=== PATIENT | female | born 1965 | race Caucasian/White ===

== ENCOUNTER 2020-03-22 09:21 | Observation (INO) | payer OTHER ==
[~2020-03-22] VITALS: Ht 167.6 cm; Wt 124.7 kg
[2020-03-22] MEDS ORDERED: FAMOTIDINE 20 MG/2 ML VIAL IV STA (09:28)
[2020-03-22] MEDS ORDERED: ONDANSETRON HCL INJ 2MG/ML 2ML 2 MG/ML VIAL IV STA (09:28)
--- NOTE | 2020-03-22 09:34 | Emergency Department Note ---
History of Present Illnes History of Present Illness Chief Complaint: Abdominal Complaints History of Present Illness This is a 55 year old female that has had abdominal pain for the last 6 days. Patient did go to an urgent care, she had a cold with strep and flu that while negative. Patient states that she's had right upper quadrant right-sided pain for the 60s constantly worsening, 10 out of 10 right now. Patient also with nausea vomiting last episode of emesis was this morning, no blood no bile. Nl BMs, no urinary complaints. Arrival Mode: Car Onset (how long ago): day(s) (6) Location: RUQ, MATY Quality: ACHE Radiation: Reports non-radiation Severity: severe Onset quality: gradual Duration (how long): day(s) (6) Timing of current episode: constant Progression: worsening Chronicity: new Context: Reports recent illness; Denies recent surgery, Denies recent immobilization, Denies recent travel Relieving factors: none Exacerbating factors: none Associated symptoms: Reports loss of appetite, Reports nausea/vomiting Past Medical/Family History Physician Review I have reviewed the patient's past medical and family history. Any updates have been documented here. Review of Systems Review of Systems Constitutional: Reports no symptoms EENTM: Reports no symptoms Cardiovascular: Reports no symptoms Respiratory: Reports no symptoms Gastrointestinal: Reports as per HPI Genitourinary: Reports no symptoms Musculoskeletal: Reports no symptoms Integumentary: Reports no symptoms Neurological: Reports no symptoms Psychological: Reports no symptoms Endocrine: Reports no symptoms Hematological/Lymphatic: Reports no symptoms Physical Exam Related Data Allergies: Coded Allergies: No Known Allergies (Unverified , 03/22/20) Vital signs reviewed: Yes Physical Exam CONSTITUTIONAL Constitutional: Present well-developed, Present well-nourished HENT HENT: Present normocephalic, Present atraumatic, Present oropharynx clear/moist, Present nose normal HENT L/R: Present left ext ear normal, Present right ext ear normal EYES Eyes: Reports PERRL, Reports conjunctivae normal NECK Neck: Present ROM normal PULMONARY Pulmonary: Present effort normal, Present breath sounds normal CARDIOVASCULAR Cardiovascular: Present regular rhythm, Present heart sounds normal, Present capillary refill normal, Present normal rate GASTROINTESTINAL Abdominal: Present soft, Present bowel sounds normal, Present tender (TTP RUQ, no peritoneal sings ) GENITOURINARY Genitourinary: Present exam deferred SKIN Skin: Present warm, Present dry MUSCULOSKELETAL Musculoskeletal: Present ROM normal NEUROLOGICAL Neurological: Present alert, Present oriented x 3, Present no gross motor or sensory deficits PSYCHOLOGICAL Psychological: Present mood/affect normal, Present judgement normal Assessment & Plan Medical Decision Making MDM Patient is a 55-year-old female with right upper quadrant to mid epigastric pain, known history of gallstones. Patient uncomfortable on exam, we will do lab work and imaging again. Patient does not have any right lower quadrant pain to my exam, no peritonitis. Patient does not have any urinary complaints, no concern for urinary source, no concern for kidney stones either. Patient likely with symptomatic cholelithiasis versus cholecystitis. Given his her age and body habitus, we'll do an EKG and cardiac to rule out ACS. Pain has been constant greater than 8 hours so one set will rule out ACS. Reassessment Reassessment KG interpreted by me shows normal sinus rhythm, normal axis, normal intervals, no acute ST changes. EKG shows sinus tachycardia. Assessment & Plan Final Impression: (1) Abdominal pain (2) Cholecystitis Depart Disposition: ADMITTED OSCAR SUNG MD Mar 22, 2020 09:34
[2020-03-22 09:45] LABS: BASOPHILS # (AUTO) 0.1 (0.0-0.1); BASOPHILS % 0.2 % (0.0-1.0); EOSINOPHILS # (AUTO) 0.1 (0.0-0.4); EOSINOPHILS % 0.4 % (0.0-6.0); HEMATOCRIT 45.7 % (34.2-44.1); HEMOGLOBIN 15.4 g/dL (12.0-16.0); LYMPHOCYTES % 9.6 % (18.0-39.1); MEAN CORPUSCULAR HGB CONC 33.7 g/dL (31-35); MEAN CORPUSCULAR VOLUME 89.1 fL (81-99); MONOCYTES # (AUTO) 1.2 (0.2-0.8); MONOCYTES % 5.7 % (4.4-11.3); NEUTROPHILS # (AUTO) 17.5 (2.1-6.9); NEUTROPHILS % 83.3 % (38.7-80.0); PLATELET COUNT 391 x10e3/uL (140-360); RED BLOOD COUNT 5.13 x10e6/uL (3.6-5.1)
[2020-03-22 10:05] LABS: ALANINE AMINOTRANSFERASE 12 IU/L (0-55); ALBUMIN 3.7 g/dL (3.5-5.0); ALBUMIN/GLOBULIN RATIO 0.7 (0.8-2.0); ALKALINE PHOSPHATASE 108 IU/L (40-150); ANION GAP 15.6 mmol/L (8-16); BLOOD UREA NITROGEN 16 mg/dL (7-26); BUN/CREATININE RATIO 21 (6-25); CALCIUM 9.2 mg/dL (8.4-10.2); CARBON DIOXIDE 25 mmol/L (22-29); CHLORIDE 101 mmol/L (98-107); CREATINE KINASE 132 IU/L (29-168); CREATININE, SERUM 0.76 mg/dL (0.57-1.11); EST GLOMERULAR FILTRATION RATE > 60 ML/MIN (60-); GLUCOSE 152 mg/dL (74-118); LIPASE 6 U/L (8-78); POTASSIUM 3.6 mmol/L (3.5-5.1); SODIUM 138 mmol/L (136-145)
[2020-03-22] MEDS ORDERED: DONNATAL/LIDOCAINE/MAALOX 30 ML SUSP PO ONE (10:30)
--- NOTE | 2020-03-22 10:37 | Diagnostic Imaging Report ---
Abdominal Ultrasound Limited Clinical Diagnosis: Possible gallstones. Right upper quadrant pain. Comparison: None Technique: Multiple transaxial and longitudinal images were obtained through the abdomen with real time ultrasonography. A low frequency curvilinear transducer was utilized. Multiple images were submitted for interpretation. Report: The patient has limited mental capacity and was unable to cooperate for the exam. There was intestinal gas that interfered with the exam. Liver: The liver measures 15.2 cm in the right midaxillary line. There are no focal masses or abnormal cysts. The echogenicity is slightly increased. Gallbladder: The transverse diameter is normal cm. The wall measures 6 mm. There is a 2 mm stone at the gallbladder neck. The gallbladder fluid is replaced with echogenic material which could be solid tissue or packed debris debris. There is a small amount of pericholecystic fluid. Sonographic Acevedo's sign is negative. Biliary tree: There is no evidence of intra or extra hepatic biliary ductal dilatation. The common bile duct measures 3 mm. Portal vein: The portal vein measures 12 mm. There is hepatopedal flow. Hepatic veins: Unremarkable. Pancreas: The pancreas shows normal echotexture and no focal masses or cysts. There is no pancreatic duct dilatation. Ascites: Absent Pleural Effusion: Absent Right kidney: The right kidney measures 11.2 x 5.4 x 4.6 cm there is a cyst inferiorly and laterally measuring 2.9 x 2.2 x 3.1 cm and is a simple cortical cyst.. There is no evidence of hydronephrosis, mass. IVC/Aorta: Partially seen segments demonstrate no abnormality. Impression: Limited abdominal ultrasound showing a thick walled gallbladder with a stone in the neck, echogenic material replacing the usually fluid contents representing tissue or debris and with pericholecystic fluid. Sonographic Acevedo's sign is negative. Clinical correlation should be carried out. A gall bladder mass is not ruled out. The liver shows mildly increased echogenicity of the liver that could represent fatty infiltration. Simple cortical cyst in the right kidney. The telephone number provided [phone] does not answer. Signed by: Rony Arnold MD on 03/22/2020 10:33 AM
[2020-03-22] MEDS ORDERED: PIPER-TAZ 3.375 GM 50 ML IV ONE (11:15)
[2020-03-22] MEDS ORDERED: HYDROMORPHONE 1MG/1ML INJ IV ONE (12:00)
--- OUTSIDE RECORDS SUMMARY | 2020-03-22 12:01 | XMS REPORT | Continuity of Care Document ---
Author Author [facility] t Organization [facility] Address [address] [place] [id number] Phone Unavailable Care Team Providers Care Field Service Rep Name Role Phone Tiffanie SUNG Unavailable Problems This patient has no known problems. Allergies, Adverse Reactions, Alerts This patient has no known allergies or adverse reactions. Medications This patient has no known medications. Procedures This patient has no known procedures. Results Test Description Test Time Test Comments Results Result Comments Source [facility] 2020-03-22 10:14:00 [facility] 1965 Sex: F [facility] [address] [place] [address] Patient Name: SARA ARREDONDO MR #: [id number] : 1965 Age/Sex: 55/F Req #: [id number] [facility] Physician: Ordered by: OSCAR SUNG MD Report #: [id number] Location: ER Room/Bed: Procedure: [id number] US/US ABDOMEN LIMITED Exam Date: 03/22/20 Exam Time: 940 REPORT STATUS: Signed Abdominal Ultrasound Limited [facility] Diagnosis: Possible gallstones. Right upper quadrant pain. Comparison: None Technique: Multiple transaxial and longitudinal images were obtained through the abdomen with real time ultrasonography. A low frequency curvilinear transducer was utilized. Multiple images were submitted for interpretation. Report: The patient has limited mental capacity and was unable to cooperate for the exam. There was intestinal gas that interfered with the exam. Liver: The liver measures 15.2 cm in the right midaxillary line. There are no focal masses or abnormal cysts. The echogenicity is slightly increased. Gallbladder: The transverse diameter is normal cm. The wall measures 6 mm. There is a 2 mm stone at the gallbladder neck. The gallbladder fluid is replaced with echogenic material which could be solid tissue or packed debris debris. There is a small amount of pericholecystic fluid. Sonographic Acevedo's sign is negative. Biliary tree: There is no evidence of intra or extra hepatic biliary ductal dilatation. The common bile duct measures 3 mm. Portal vein: The portal vein measures 12 mm. There is hepatopedal flow. Hepatic veins: Unremarkable. Pancreas: The pancreas shows normal echotexture and no focal masses or cysts. There is no pancreatic duct dilatation. Ascites: Absent Pleural Effusion: Absent Right kidney: The right kidney measures 11.2 x 5.4 x 4.6 cm there is a cyst inferiorly and laterally measuring 2.9 x 2.2 x 3.1 cm and is a simple cortical cyst.. There is no evidence of hydronephrosis, mass. IVC/Aorta: Partially seen segments demonstrate no abnormality. Impression: Limited abdominal ultrasound showing a thick walled gallbladder with a stone in the neck, echogenic material replacing the usually fluid contents representing tissue or debris and with pericholecystic fluid. Sonographic Acevedo's sign is negative. Clinical correlation should be carried out. A gall bladder mass is not ruled out. The liver shows mildly increased echogenicity of the liver that could represent fatty infiltration. Simple cortical cyst in the right kidney. The telephone number provided [phone] does not answer. Signed by: Stephanie Lazcano MD on 03/22/2020 10:33 AM Dictated By: STEPHANIE LAZCANO MD [id number] Transcribed By: NIKOLAI on 03/22/201032 COPY TO: OSCAR SUNG MD
[2020-03-22] MEDS: SODIUM CHLORIDE 0.9% 1000ML 1,000 ML IV SCH ×2 (13:00→20:43)
--- NOTE | 2020-03-22 13:00 | NUR ---
RCD PATIENT FROM ER BY BED PT IS ALERT AND ORIENTED PT RESTING ON BED VITALS CHECKED ,ADMISSION ASSESSMENT DONE PT SAID ABDOMINAL PAIN ON THE RIGHT SIDE STARTED ON LAST SUNDAY ,NOW SHE DENIED ANY PAIN SHE HAD BOWEL MOVEMENT ON YESTURDAY SHE VOIDED ,IV PATENT BY SALINE FLUSH ANS CONNECTED NS 125 ML/HR ,INSTRUCTED THE PT AND FAMILY REGARDING HOSPITAL POLICY AND ROUTINE AND VISITING POLICY BED LOW AND LOCKED CALL LIGHT IN REACH
[2020-03-22 13:12] VITALS: BP 159/95
[2020-03-22 13:27] VITALS: BP 159/95
[2020-03-22 13:30] VITALS: BP 159/95
--- NOTE | 2020-03-22 13:41 | NUR ---
AC TO [facility] ,DR AVELAR IS THE [employer] HE IS AWARE ABOUT THE CONSULTATION
[2020-03-22 15:34] VITALS: BP 164/79
[2020-03-22] MEDS ORDERED: DEXAMETHASONE SOD PHOS INJ 4 MG/ML VIAL ONE (16:05)
[2020-03-22] MEDS ORDERED: NEOSTIGMINE 1 MG/ML 10ML VIAL ONE (16:05)
[2020-03-22] MEDS ORDERED: LIDOCAINE HCL 2% LOCAL INJ 5 ML SDV VIAL INJ ONE (16:05)
[2020-03-22] MEDS ORDERED: GLYCOPYRROLATE INJ 0.2 MG/ML VIAL ONE (16:05)
[2020-03-22] MEDS ORDERED: SEVOFLURANE INHAL SOLN 250 ML PEN BTL ONE (16:05)
[2020-03-22] MEDS ORDERED: ROCURONIUM BROMIDE 10 MG/ML 5ML VIAL IV ONE (16:05)
[2020-03-22] MEDS ORDERED: ONDANSETRON HCL INJ 2MG/ML 2ML 2 MG/ML VIAL ONE (16:05)
[2020-03-22] MEDS ORDERED: ALBUTEROL SULFATE HFA 8GM INHALATION AEROSOL INH ONE (16:05)
[2020-03-22] MEDS ORDERED: PROPOFOL IV EMULSION 10 MG/ML 20 ML VIAL ONE (16:05)
--- NOTE | 2020-03-22 16:10 | NUR ---
PT C/O PAIN ON ABDOMEN PAGED AND NOTIFIED DR Goldy TELLO GOT NEW ORDERS
[2020-03-22] MEDS: ONDANSETRON HCL INJ 2MG/ML 2ML 2 MG/ML VIAL IV PRN ×2 (16:38→20:40)
[2020-03-22] MEDS: HYDROMORPHONE 1MG/1ML INJ IV PRN ×2 (16:38→20:40)
--- NOTE | 2020-03-22 17:30 | NUR ---
PT GOING FOR SURGERY ON TOMORROW ,NPO AFTER MIDNIGHT SIGNED CONSENT
[2020-03-22] MEDS: PIPER-TAZ 3.375 GM 50 ML IV SCH (18:00)
--- NOTE | 2020-03-22 18:41 | Consultation ---
DATE OF CONSULTATION: 03/22/2020 HISTORY OF PRESENT ILLNESS: The patient is a 55-year-old female, presents to the emergency room with complaints of abdominal pain, which she has had now for about 5 days. She has had known gallstones for years. She says the pain is epigastric and right upper quadrant. She has had a low-grade fever. She denies nausea or vomiting. There are no symptoms of jaundice. Evaluation in the emergency room revealed gallstones with stone in the gallbladder neck with thickened gallbladder wall. PAST MEDICAL HISTORY: Otherwise unremarkable. She denies chronic medical problems. PAST SURGICAL HISTORY: Only previous surgery is ankle surgery. MEDICATIONS: There were no current medications. ALLERGIES: NO KNOWN ALLERGIES. FAMILY HISTORY: Noncontributory. SOCIAL HISTORY: The patient does not smoke cigarettes or drink alcohol. REVIEW OF SYSTEMS: As stated above, otherwise was negative. PHYSICAL EXAMINATION: GENERAL: The patient is awake and alert, in no distress. VITAL SIGNS: Normal. HEENT: Sclerae are not icteric. NECK: Has no masses. LUNGS: Equal breath sounds are clear bilaterally. CARDIAC: Regular rate and rhythm. Normal S1 and S2 without murmur, S3, or S4. There is no jugular venous distention. ABDOMEN: Tender in the right upper quadrant. There is no mass. There was no organomegaly. EXTREMITIES: Have no edema. NEUROLOGIC: Intact. ASSESSMENT: A 55-year-old female with acute cholecystitis and cholelithiasis. She will benefit from cholecystectomy, which I planned to schedule for tomorrow. Procedure was explained to the patient including risks, benefits, and alternatives. She understands. She has had the opportunity to ask questions. She is aware of the possible need for open surgery. Thank you for asking me to see Ms. Cortes. MD LATSAHA Garnica/FREDERICK /[id number]
--- NOTE | 2020-03-22 18:47 | NUR ---
PT RESTING ON BED BED SIDE REPORT GIVEN TO ONCOMING NURSE
[2020-03-22 20:00] VITALS: BP 158/85
--- NOTE | 2020-03-22 20:08 | NUR ---
History&Physical Chief Complaint - RUQ abdominal pain History of Present Illness Ms Cortes is a 55 yo F with PMH significant for tobacco use and cholelithiasis who presents with RUQ abdominal pain admitted for acute cholecystitis. Patient states she has been having epigastric and RUQ abdominal pain for 5 days after eating tacos at [employer]. The pain was persistent and caused nausea and occasional vomiting. She has been unable to eat for the last few days due to the pain, and she recognized that it is likely her gallbladder as she had this happen 5 years ago and was told it was a gallstone (likely mild cholecystitis). Did not have an EGD or any procedure done that time. She was discharged and told to followup outpatient for cholecystectomy but never followed up. In ED her vitals were stable, WBC 21k however. Positive villeda's sign on physical exam by ER physician prompted abdominal US which showed thickened gallb ladder wall with a stone in the neck and pericholecystic fluid. Admitted for further management. Home Medications - no home medications Review of Systems General: No fever, chills, or fatigue HEENT: Denies visual changes, hearing loss, congestion, rhinorrhea, or bleeding Respiratory: No SOB, cough, or hemoptysis Cardiovascular: No chest pain, palpitations, WEI, orthopnea, PND, leg edema, or claudication Gastrointestinal: + nausea,+ vomiting, +abdominal pain; No diarrhea, constipation G/U: Denies dysuria, hematuria, incontinence, or discharge Musculoskeletal: No myalgias or arthralgias Neurological: No syncope, seizures, headaches, changes in sensation, or weakness Hematology: No bruising, bleeding, or lymphadenopathy Endocrine: No heat or cold intolerance, hair loss, or weight changes Skin: No rashes, sores, itching, bruising Psychiatric: Denies depression or elevated mood, or anxiety Past Medical History Tobacco abuse Past Surgical History Prior ankle surgery Family History Non-contributory Social History Smokes 0.5PPD x 30 years; does not drink, does not use drugs Allergies NKDA Physical Exam Vitals: Temp: 98.2P: 97BP: 164/79RR: 18SpO2: 96 General Appearance: The patient is alert, oriented and in no acute distress. Appears euvolemic. Skin: Warm and hydrated without any rash. HEENT: Head is normocephalic, atraumatic. Nontender sinuses. Pupils are equal and reactive. The nares are patent. Oropharynx is moist and clear without lesions. Neck: Supple without lymphadenopathy. No JVD. 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 Normal S1 and S2 without S3/S4. No murmurs, rubs or gallops. Peripheral pulses symmetric +2. Respiratory / Chest: No crackles or wheezes are heard. Symmetric breath sounds. Preserved chest expansion. Abdomen: Soft, +tenderness to RUQ on light palpation; nondistended with good bowel sounds heard. No clinical organomegaly. Renal: There is no costovertebral angle tenderness. Extremities: Without cyanosis, clubbing or edema. Preserved ROM. Neurological: Gross nonfocal. Patient oriented x 3. Cranial nerves II - XII Grossly intact. DTRs +2. MS: 5/5 globally. Labs/Imaging: all pertinent labs and diagnostic imaging were reviewed Assessment/Plan #acute cholecystitis - keep NPO - Zosyn started - Consulted Dr Yao, appreciate assistance - planning for cholecystectomy tomorrow AM #Hypertension? - no prior diagnosis; SBP 150-160s - could be related to pain however, will monitor and start medications as necessary I have spent 70 minutes [id number] time with patient, reviewing clinical data, and formulating plan of treatment. Amado Coreas MD Internal Medicine
[2020-03-22 21:00] VITALS: BP 158/85
[2020-03-23] VITALS (8 sets, daily range): BP systolic 131–162; BP diastolic 63–90
[2020-03-23] MEDS: PIPER-TAZ 3.375 GM 50 ML IV SCH ×5 (00:25→23:53)
--- NOTE | 2020-03-23 00:35 | NUR ---
Patient educated about NPO status ( nothing by mouth) patient verbalized understanding. All drinks removed from bedside.
[2020-03-23] MEDS: SODIUM CHLORIDE 0.9% 1000ML 1,000 ML IV SCH ×3 (04:14→15:56)
--- NOTE | 2020-03-23 05:45 | NUR ---
Patient up to shower for CHG shower, linens changed. Tolerating well
[2020-03-23 05:46] LABS: ALANINE AMINOTRANSFERASE 10 IU/L (0-55); ALBUMIN/GLOBULIN RATIO 0.7 (0.8-2.0); ALKALINE PHOSPHATASE 86 IU/L (40-150); ANION GAP 11.5 mmol/L (8-16); BLOOD UREA NITROGEN 17 mg/dL (7-26); BUN/CREATININE RATIO 22 (6-25); CALCIUM 8.3 mg/dL (8.4-10.2); CARBON DIOXIDE 27 mmol/L (22-29); CHLORIDE 104 mmol/L (98-107); CREATININE, SERUM 0.76 mg/dL (0.57-1.11); EST GLOMERULAR FILTRATION RATE > 60 ML/MIN (60-); GLUCOSE 142 mg/dL (74-118); POTASSIUM 3.5 mmol/L (3.5-5.1); SODIUM 139 mmol/L (136-145)
[2020-03-23 05:49] LABS: BASOPHILS # (AUTO) 0.1 (0.0-0.1); BASOPHILS % 0.4 % (0.0-1.0); EOSINOPHILS # (AUTO) 0.2 (0.0-0.4); EOSINOPHILS % 0.8 % (0.0-6.0); HEMATOCRIT 41.6 % (34.2-44.1); HEMOGLOBIN 13.6 g/dL (12.0-16.0); LYMPHOCYTES # (AUTO) 1.7 (1.0-3.2); LYMPHOCYTES % 8.5 % (18.0-39.1); MEAN CORPUSCULAR HGB CONC 32.7 g/dL (31-35); MEAN CORPUSCULAR VOLUME 91.6 fL (81-99); MONOCYTES # (AUTO) 1.7 (0.2-0.8); MONOCYTES % 8.6 % (4.4-11.3); NEUTROPHILS % 81.2 % (38.7-80.0); PLATELET COUNT 322 x10e3/uL (140-360); RED BLOOD COUNT 4.54 x10e6/uL (3.6-5.1); RED CELL DISTRIBUTION WIDTH 13.1 % (11.7-14.4)
[2020-03-23] MEDS: HYDROMORPHONE 1MG/1ML INJ IV PRN ×2 (06:30→15:57)
[2020-03-23] MEDS: ONDANSETRON HCL INJ 2MG/ML 2ML 2 MG/ML VIAL IV PRN (06:30)
--- NOTE | 2020-03-23 07:08 | NUR ---
Bedside report and walking rounds completed with oncoming nurse. Patient in bed with call light within reach. No issues or concerns noted. Bed locked and in lowest position. Patient updated on POC.
[2020-03-23] MEDS ORDERED: BUPIVACAINE HCL 0.5% INJ 30 ML VIAL INJ ONE (11:57)
[2020-03-23] MEDS ORDERED: FENTANYL CITRATE/PF 100MCG/2 ML INJ ONE ×2 (12:03→14:47)
[2020-03-23] MEDS ORDERED: MIDAZOLAM HCL 2 MG/2 ML VIAL ONE (12:03)
[2020-03-23] MEDS ORDERED: ONDANSETRON HCL INJ 2MG/ML 2ML 2 MG/ML VIAL IV PRN (14:30)
--- NOTE | 2020-03-23 15:00 | NUR ---
Pt received from PACU at this time. Pt is aox3 and able to verbalize needs. Complain of soreness to abdomen after josue/daniella. Breaths are even and unlabored on room air.
--- NOTE | 2020-03-23 15:31 | Operative Report ---
DATE OF PROCEDURE: 03/23/2020 SURGEON: Jas Yao MD PREOPERATIVE DIAGNOSES: Acute cholecystitis and cholelithiasis. POSTOPERATIVE DIAGNOSES: Acute cholecystitis and cholelithiasis. PROCEDURES: Diagnostic laparoscopy, laparoscopic cholecystectomy. COLLAR STITCHER: None. ANESTHESIA: General endotracheal. INDICATIONS AND FINDINGS: The patient is a 55-year-old female admitted to the hospital, complaints of severe epigastric right upper quadrant abdominal pain. Workup revealed a large stone impacting the gallbladder neck with findings suggestive of acute cholecystitis. At surgery, the patient was found that the gallbladder was distended and edematous with a large stone impacting the gallbladder neck. Cystic duct was about 3 mm in diameter. Common bile duct was about 6 mm in diameter. Liver, stomach, and lower abdomen all appeared normal. TECHNIQUE: After adequate general endotracheal anesthesia, the patient in supine position, the abdomen was prepped and draped in sterile fashion with ChloraPrep solution. Skin in the umbilicus was infiltrated with 0.5% Marcaine. Incision was made in the umbilicus. Abdominal wall was elevated and Veress needle was introduced. Pneumoperitoneum was then created. A 10 mm trocar and cannula were then passed through the umbilical wound. Laparoscopic camera was introduced. Initial laparoscopy revealed inflammatory process in right upper quadrant. A 10 mm trocar and cannula were placed in the epigastrium. Two 5 mm trocars and cannulas were placed in the right upper quadrant. These were placed under direct vision. There was omentum adherent over an acutely inflamed gallbladder. The omentum was dissected away from the gallbladder. The gallbladder was edematous and tense. It was decompressed with a needle, contained some thick bile sludge and some mucus. Fundus of the gallbladder was grasped and retracted superiorly. Neck of the gallbladder was grasped and retracted laterally. Peritoneum over the neck of the gallbladder was incised. The gallbladder and cystic duct junction were dissected free. Cystic artery was also dissected free. The neck of the gallbladder completely dissected free. Cystic artery was divided between hemoclips close to the gallbladder. Cystic duct was also divided between hemoclips with 3 clips being left on the common bile duct side. There was a posterior branch of cystic artery, which was also divided between hemoclips close to the gallbladder. The gallbladder was dissected free from the liver using scissors and electrocautery. Once it was entirely free, it was placed into an Endopouch and brought out through the epigastric cannula. There was one large stone. Gallbladder bed was inspected for hemostasis, which was seen to be adequate. It was irrigated with saline. All fluid aspirated and inspected for hemostasis, which was seen to be adequate. Instruments and cannulas were removed. Pneumoperitoneum was evacuated. Wounds were then closed. Fascia in the umbilical and epigastric wound closed with 0 Vicryl. Skin to all wounds closed with faustino. Sterile dressings applied to each wound. The patient tolerated the procedure well. Estimated blood loss was 40 mL. There were no complications. All counts were correct. The patient was taken to the recovery room in satisfactory condition. MD LATASHA Garnica/FREDERICK /[id number] cc: Chet Coreas MD
[2020-03-23 16:46] LABS: BASOPHILS # (AUTO) 0.1 (0.0-0.1); BASOPHILS % 0.3 % (0.0-1.0); EOSINOPHILS % 0.2 % (0.0-6.0); HEMATOCRIT 40.2 % (34.2-44.1); HEMOGLOBIN 12.9 g/dL (12.0-16.0); LYMPHOCYTES # (AUTO) 0.8 (1.0-3.2); LYMPHOCYTES % 4.1 % (18.0-39.1); MEAN CORPUSCULAR HEMOGLOBIN 29.9 pg (28-32); MEAN CORPUSCULAR HGB CONC 32.1 g/dL (31-35); MEAN CORPUSCULAR VOLUME 93.3 fL (81-99); MONOCYTES # (AUTO) 0.7 (0.2-0.8); MONOCYTES % 3.5 % (4.4-11.3); NEUTROPHILS % 91.3 % (38.7-80.0); PLATELET COUNT 307 x10e3/uL (140-360); RED BLOOD COUNT 4.31 x10e6/uL (3.6-5.1); RED CELL DISTRIBUTION WIDTH 13.2 % (11.7-14.4)
--- NOTE | 2020-03-23 19:00 | NUR ---
Bedside report and walking rounds completed with off going nurse. Patient walking in room with spouse at side. No issues or concerns noted. Bed locked and in lowest position. Patient updated on POC.
--- NOTE | 2020-03-23 19:41 | NUR ---
Patient up and ambulating in vela with spouse at side, tolerating well.
[2020-03-23] MEDS: HYDROCODONE/APAP 5MG-325MG TAB PO PRN ×2 (19:55→23:50)
--- NOTE | 2020-03-23 21:17 | NUR ---
Progress Note Subjective 03/23: S/p lap daniella today, will monitor overnight and manage pain, continue IV abx for 24 hrs after surgery and likely discharge home tomorrow. History of Present Illness Ms Cortes is a 55 yo F with PMH significant for tobacco use and cholelithiasis who presents with RUQ abdominal pain admitted for acute cholecystitis. Patient states she has been having epigastric and RUQ abdominal pain for 5 days after eating tacos at [employer]. The pain was persistent and caused nausea and occasional vomiting. She has been unable to eat for the last few days due to the pain, and she recognized that it is likely her gallbladder as she had this happen 5 years ago and was told it was a gallstone (likely mild cholecystitis). Did not have an EGD or any procedure done that time. She was discharged and told to followup outpatient for cholecystectomy but never followed up. In ED her vitals were stable, WBC 21k however. Positive villeda's sign on physical exam by ER physician prompted abdominal US which showed thickened gallb ladder wall with a stone in the neck and pericholecystic fluid. Admitted for further management. Physical Exam Vitals: Temp: 98.6P: 81BP: 131/90RR: 20SpO2: 92% General Appearance: The patient is alert, oriented and in no acute distress. Appears euvolemic. Skin: Warm and hydrated without any rash. HEENT: Head is normocephalic, atraumatic. Nontender sinuses. Pupils are equal and reactive. The nares are patent. Oropharynx is moist and clear without lesions. Neck: Supple without lymphadenopathy. No JVD. 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 Normal S1 and S2 without S3/S4. No murmurs, rubs or gallops. Peripheral pulses symmetric +2. Respiratory / Chest: No crackles or wheezes are heard. Symmetric breath sounds. Preserved chest expansion. Abdomen: Soft, +tenderness to RUQ on light palpation; nondistended with good bowel sounds heard. No clinical organomegaly. Renal: There is no costovertebral angle tenderness. Extremities: Without cyanosis, clubbing or edema. Preserved ROM. Neurological: Gross nonfocal. Patient oriented x 3. Cranial nerves II - XII Grossly intact. DTRs +2. MS: 5/5 globally. Labs/Imaging: all pertinent labs and diagnostic imaging were reviewed Assessment/Plan #acute cholecystitis s/p lap daniella - Zosyn, will continue for 1 day post op then d/c - Consulted Dr Yao, now s/p lap daniella - Dilaudid and norco for pain #Hypertension? - no prior diagnosis; SBP 150-160s - could be related to pain however, will monitor and start medications as necessary Amado Coreas MD Internal Medicine
[2020-03-24] VITALS: BP 137/72
[2020-03-24 04:00] VITALS: BP 143/70
[2020-03-24] MEDS: SODIUM CHLORIDE 0.9% 1000ML 1,000 ML IV SCH (04:01)
--- NOTE | 2020-03-24 04:06 | NUR ---
Patient up and ambulating in vela with spouse, tolerating well.
[2020-03-24] MEDS: PIPER-TAZ 3.375 GM 50 ML IV SCH (05:35)
[2020-03-24 06:44] LABS: BASOPHILS % 0.2 % (0.0-1.0); HEMATOCRIT 37.6 % (34.2-44.1); HEMOGLOBIN 11.9 g/dL (12.0-16.0); LYMPHOCYTES # (AUTO) 1.2 (1.0-3.2); LYMPHOCYTES % 7.1 % (18.0-39.1); MEAN CORPUSCULAR HEMOGLOBIN 29.8 pg (28-32); MEAN CORPUSCULAR HGB CONC 31.6 g/dL (31-35); MEAN CORPUSCULAR VOLUME 94.2 fL (81-99); NEUTROPHILS # (AUTO) 14.7 (2.1-6.9); NEUTROPHILS % 86.1 % (38.7-80.0); PLATELET COUNT 303 x10e3/uL (140-360); RED BLOOD COUNT 3.99 x10e6/uL (3.6-5.1); RED CELL DISTRIBUTION WIDTH 13.4 % (11.7-14.4)
[2020-03-24 07:10] LABS: ALANINE AMINOTRANSFERASE 25 IU/L (0-55); ALBUMIN 2.6 g/dL (3.5-5.0); ALBUMIN/GLOBULIN RATIO 0.6 (0.8-2.0); ALKALINE PHOSPHATASE 84 IU/L (40-150); ANION GAP 13.2 mmol/L (8-16); BLOOD UREA NITROGEN 20 mg/dL (7-26); BUN/CREATININE RATIO 26 (6-25); CALCIUM 8.6 mg/dL (8.4-10.2); CARBON DIOXIDE 27 mmol/L (22-29); CHLORIDE 105 mmol/L (98-107); CREATININE, SERUM 0.78 mg/dL (0.57-1.11); EST GLOMERULAR FILTRATION RATE > 60 ML/MIN (60-); GLUCOSE 126 mg/dL (74-118); POTASSIUM 4.2 mmol/L (3.5-5.1); SODIUM 141 mmol/L (136-145)
[2020-03-24 08:00] VITALS: BP 127/67
[2020-03-24 08:08] VITALS: BP 143/70
[2020-03-24] MEDS ORDERED: NORCO 5-325 TA1 EACH PO (10:00)
--- NOTE | 2020-03-24 10:24 | NUR ---
Discharge instructions and prescription for [place] given to the patient. She verbalized understanding. There was duplicate prescription for pain medication. The rx for Ultracet was placed in shredder and witnessed by second RN, Luana.
== END 2020-03-24 10:45 | disposition home or self-care (01) ==
LOC: ER 09:30 → ERHOLD 11:30 → MED/SURG2 12:46
PROVIDERS: ADMIT Internal Medicine; ATTEND Internal Medicine
DX: K80.00 Calculus of gallbladder with acute cholecystitis without obstruction (principal); R03.0 Elevated blood-pressure reading, without diagnosis of hypertension; Z72.0 Tobacco use; Z20.828 Contact with and (suspected) exposure to other viral communicable diseases
CPT/HCPCS: 36415 ×3; 47562; 76705; 80053 ×3; 82550; 82553; 83036; 83605; 83690; 84484; 85025 ×3; 87040; 88304; 93005; 99284; G0378 ×3; J1100; J1170 ×2; J2001; J2250; J2405 ×2; J2543 ×3; J2704; J2710; J3010; J7030 ×3; U0002

== ENCOUNTER 2024-11-23 17:53 | Emergency (ER) | payer OTHER ==
[~2024-11-23] VITALS: Ht 172.7 cm; Wt 111.1 kg
[~2024-11-23 17:53] MED LIST: NORCO 5-325 TA1 EACH PO
[2024-11-23 19:32] LABS: BASOPHILS % 0.3 % (0.0-1.0); EOSINOPHILS % 0.7 % (0.0-6.0); LYMPHOCYTES % 20.2 % (18.0-39.1); MONOCYTES % 3.9 % (4.4-11.3); NEUTROPHILS % 74.6 % (38.7-80.0); RED CELL DISTRIBUTION WIDTH 13.5 % (11.7-14.4)
[2024-11-23 19:44] LABS: EST GLOMERULAR FILTRATION RATE 81.0 ML/MIN (>=60)
[2024-11-23] MEDS ORDERED: IOPAMIDOL 370 MG/ML 100 ML INFUS..BTL INJ ONE (20:00)
[2024-11-23 20:58] VITALS: PULSE 83; RESP 18; TEMP 98.4
[2024-11-23 21:14] VITALS: BP 158/75; PULSE 83; RESP 18; TEMP 98.4; O2SAT 95
== END 2024-11-23 21:15 | disposition home or self-care (01) ==
LOC: ER 18:22
DX: R10.11 Right upper quadrant pain (principal); Q43.3 Congenital malformations of intestinal fixation; K57.90 Diverticulosis of intestine, part unspecified, without perforation or abscess without bleeding; E11.65 Type 2 diabetes mellitus with hyperglycemia; E78.00 Pure hypercholesterolemia, unspecified; R94.31 Abnormal electrocardiogram [ECG] [EKG]; Z85.828 Personal history of other malignant neoplasm of skin
CPT/HCPCS: 36415; 74177; 80053; 83690; 84484; 85025; 93005; 99284; Q9967